=== PATIENT | male | born 1965 | race African-American/Black ===

== ENCOUNTER 2024-08-27 12:04 | Inpatient (IN) | payer OTHER ==
[2024-08-27 12:31] VITALS: BMI 19.8
[2024-08-27] MEDS ORDERED: BISMUTH SUBSALICYLATE 524 MG/30 ML PO PRN (12:43)
[2024-08-27] MEDS ORDERED: MAGNESIUM HYDROX 2400MG/30ML ORAL SUSPENSION 30 ML CUP PO PRN (12:43)
[2024-08-27] MEDS ORDERED: IBUPROFEN 400 MG TABLET (FP) PO PRN (12:43)
[2024-08-27] MEDS ORDERED: BENZOCAINE/MENTHOL (CHLORASEPTIC ) LOZENGE MM PRN (12:43)
[2024-08-27] MEDS ORDERED: guaiFENesin 600 MG TABLET.ER (FP) PO PRN (12:43)
[2024-08-27] MEDS ORDERED: BENZONATATE 200 MG CAPSULE PO PRN (12:43)
[2024-08-27] MEDS ORDERED: ACETAMINOPHEN 325 MG TABLET (FP) PO PRN (12:43)
[2024-08-27] MEDS ORDERED: hydrOXYzine PAMOATE 25 MG CAPSULE (FP) PO PRN (12:43)
[2024-08-27] MEDS ORDERED: DICYCLOMINE HCL 10 MG CAPSULE PO PRN (12:43)
[2024-08-27] MEDS ORDERED: NALOXONE (NARCAN) HCL 4 MG/0.1 ML SPRAY NS PRN (12:43)
[2024-08-27] MEDS ORDERED: ONDANSETRON *ODT* 4 MG TABLET SL PRN (12:43)
[2024-08-27] MEDS ORDERED: LORazepam 1 MG TABLET PO PRN (12:43)
[2024-08-27] MEDS ORDERED: METHOCARBAMOL 500 MG TABLET PO PRN (12:43)
[2024-08-27] MEDS ORDERED: MAG HYDROX/AL HYDROX/SIMETH 30 ML UNIT-DOSE CUP PO PRN (12:43)
[2024-08-27] MEDS ORDERED: POLYETHYLENE GLYCOL (HEALTHYLAX) 3350 17 GM PACKET PO PRN (12:43)
[2024-08-27] MEDS ORDERED: LOPERAMIDE HCL 2 MG CAPSULE PO PRN (12:43)
[2024-08-27] MEDS ORDERED: levETIRAcetam 500 MG TABLET (FP) PO ONE (13:13)
[2024-08-27] MEDS ORDERED: PRENATAL VITAMINS W/ FOLIC ACID TABLET (FP) PO ONE (13:14)
[2024-08-27] MEDS ORDERED: LORazepam 2 MG TABLET ONE (13:14)
[2024-08-27] MEDS: levETIRAcetam 500 MG TABLET (FP) PO ONE (13:18)
[2024-08-27] MEDS: LORazepam 2 MG TABLET PO ONE (13:18)
[2024-08-27] MEDS: PRENATAL VITAMINS W/ FOLIC ACID TABLET (FP) PO SCH (13:18)
[2024-08-27] MEDS: LORazepam 2 MG TABLET PO SCH (17:31)
[2024-08-27] MEDS: THIAMINE 100 MG TABLET PO SCH (22:06)
[2024-08-27] MEDS: MELATONIN 5 MG TABLETS PO SCH (22:06)
[2024-08-28] MEDS: levETIRAcetam 500 MG TABLET (FP) PO SCH (10:09)
[2024-08-28] MEDS: SERTRALINE HCL 25 MG TABLET (FP) PO SCH (10:10)
[2024-08-28 10:43] LABS: HEMATOCRIT 32.5 % (40.1-51.0); HEMOGLOBIN 10.7 g/dL (13.7-17.5); MCHC 32.9 g/dl (32.3-36.5); MEAN CELL VOLUME 87.6 fl (79.0-92.2); MEAN PLT VOLUME 10.8 fl (9.4-12.4); PLATELET COUNT 145 x10^3/uL (163-337); RDW 19.5 % (12.2-16.4)
[2024-08-28 11:05] LABS: POTASSIUM 3.5 mmol/L (3.5-5.1)
[2024-08-28 11:07] LABS: BLOOD UREA NITROGEN 8.7 mg/dL (7-18); CALCIUM 9.4 mg/dL (8.5-10.1)
[2024-08-28 11:08] LABS: ALBUMIN 3.7 g/dl (3.4-5.0)
[2024-08-28 11:12] LABS: TOT PROT 7.2 g/dl (6.4-8.2)
[2024-08-28] MEDS: traZODone HCL 100 MG TABLET (FP) PO SCH (22:38)
[2024-08-28] MEDS: IBUPROFEN 600 MG TABLET (FP) PO PRN (22:38)
[2024-08-29] MEDS: LORazepam 1 MG TABLET PO SCH (05:58)
[2024-08-29 09:20] LABS: ALBUMIN 3.4 g/dl (3.4-5.0)
[2024-08-29 09:24] LABS: BILIRUBIN,DIRECT 0.4 mg/dL (0.0-0.2)
[2024-08-29 09:25] LABS: TOT PROT 6.7 g/dl (6.4-8.2)
[2024-08-29] MEDS ORDERED: LACTULOSE 20 GM/30 ML UDC (FOR ORAL USE ONLY) PO PRN (14:18)
[2024-08-30] MEDS ORDERED: LORazepam 0.5 MG TABLET PO PRN
[2024-08-30] MEDS: LORazepam 0.5 MG TABLET PO SCH (05:45)
[2024-08-30] MEDS: PRIMIDONE 50 MG TABLET PO SCH (10:14)
[2024-08-30] MEDS: FOLIC ACID 1 MG TABLET (FP) PO SCH (10:16)
[2024-08-30] MEDS: PANTOPRAZOLE 20 MG TABLET PO SCH (10:16)
[2024-08-30] MEDS: amLODIPine BESYLATE 5 MG TABLET (FP) PO SCH (10:16)
[2024-08-30] MEDS: GABAPENTIN 300 MG CAPSULE PO SCH (13:27)
[2024-08-30] MEDS: metFORMIN HCL 500 MG TABLET (FP) PO SCH (17:13)
[2024-08-31] MEDS: LORazepam 0.5 MG TABLET PO ONE (05:19)
[2024-08-31 06:32] VITALS: RESP 16
[2024-08-31 09:04] VITALS: BP 106/66; PULSE 85; TEMP 97.3
== END 2024-08-31 11:11 | disposition other institution (70) | DRG 897 ==
LOC: YASAS 12:04 → Y3N 13:31
PROVIDERS: ADMIT Allergy & Immunology; ATTEND Allergy & Immunology
PROC: HZ2ZZZZ Detoxification Services for Substance Abuse Treatment (ICD-10-PCS; principal; 2024-08-27)
DX: F10.230 Alcohol dependence with withdrawal, uncomplicated (principal); E72.20 Disorder of urea cycle metabolism, unspecified; F32.9 Major depressive disorder, single episode, unspecified; G40.909 Epilepsy, unspecified, not intractable, without status epilepticus; I10 Essential (primary) hypertension; K21.9 Gastro-esophageal reflux disease without esophagitis; E11.9 Type 2 diabetes mellitus without complications; Z79.84 Long term (current) use of oral hypoglycemic drugs; R74.01 Elevation of levels of liver transaminase levels
CPT/HCPCS: 36415; 80053; 80076; 80305; 80307; 82140; 82962; 85027; 86780; 93005; 93010

== ENCOUNTER 2024-08-31 11:17 | Inpatient (IN) | payer OTHER ==
[2024-08-31] MEDS ORDERED: LOPERAMIDE HCL 2 MG CAPSULE PO PRN (16:42)
[2024-08-31] MEDS ORDERED: NICOTINE POLACRILEX 2 MG GUM BUC PRN (16:42)
[2024-08-31] MEDS ORDERED: MAGNESIUM HYDROX 2400MG/30ML ORAL SUSPENSION 30 ML CUP PO PRN (16:42)
[2024-08-31] MEDS ORDERED: NICOTINE POLACRILEX 2 MG LOZENGE BC PRN (16:42)
[2024-08-31] MEDS ORDERED: NALOXONE HCL 0.4 MG/ML VIAL IVPUSH PRN (16:42)
[2024-08-31] MEDS ORDERED: BENZOCAINE/MENTHOL (CHLORASEPTIC ) LOZENGE MM PRN (16:42)
[2024-08-31] MEDS ORDERED: BENZONATATE 200 MG CAPSULE PO PRN (16:42)
[2024-08-31] MEDS ORDERED: POLYETHYLENE GLYCOL (HEALTHYLAX) 3350 17 GM PACKET PO PRN (16:42)
[2024-08-31] MEDS ORDERED: MAG HYDROX/AL HYDROX/SIMETH 30 ML UNIT-DOSE CUP PO PRN (16:42)
[2024-08-31] MEDS ORDERED: guaiFENesin 600 MG TABLET.ER (FP) PO PRN (16:42)
[2024-08-31] MEDS ORDERED: IBUPROFEN 400 MG TABLET (FP) PO PRN (16:42)
[2024-08-31] MEDS ORDERED: NALOXONE (NARCAN) HCL 4 MG/0.1 ML SPRAY NS PRN (16:42)
[2024-08-31] MEDS: metFORMIN HCL 500 MG TABLET (FP) PO SCH (17:25)
[2024-08-31] MEDS: METHOCARBAMOL 500 MG TABLET PO PRN (17:26)
[2024-08-31] MEDS: ACETAMINOPHEN 325 MG TABLET (FP) PO PRN (22:09)
[2024-08-31] MEDS: MELATONIN 5 MG TABLETS PO SCH (22:10)
[2024-08-31] MEDS: levETIRAcetam 500 MG TABLET (FP) PO SCH (22:10)
[2024-08-31] MEDS: GABAPENTIN 300 MG CAPSULE PO SCH (22:10)
[2024-08-31] MEDS: THIAMINE 100 MG TABLET PO SCH (22:10)
[2024-08-31] MEDS: PANTOPRAZOLE 20 MG TABLET PO SCH (22:10)
[2024-08-31] MEDS: traZODone HCL 100 MG TABLET (FP) PO ONE (22:11)
[2024-09-01] MEDS: IBUPROFEN 600 MG TABLET (FP) PO PRN (06:14)
[2024-09-01] MEDS: amLODIPine BESYLATE 5 MG TABLET (FP) PO SCH (09:54)
[2024-09-01] MEDS: FOLIC ACID 1 MG TABLET (FP) PO SCH (09:54)
[2024-09-01] MEDS: PRIMIDONE 50 MG TABLET PO SCH (09:54)
[2024-09-01] MEDS: PRENATAL VITAMINS W/ FOLIC ACID TABLET (FP) PO SCH (09:54)
[2024-09-01] MEDS: traZODone HCL 100 MG TABLET (FP) PO SCH (21:12)
[2024-09-01] MEDS: QUEtiapine FUMARATE 100 MG TABLET (FP) PO SCH (21:12)
[2024-09-02] MEDS: LACTULOSE 20 GM/30 ML UDC (FOR ORAL USE ONLY) PO SCH (13:29)
[2024-09-06] MEDS: LIDOCAINE 5% TOPICAL PATCH TP SCH (11:58)
[2024-09-06] MEDS: LIDOCAINE PATCH REMOVAL MC SCH (21:16)
[2024-09-07] MEDS ORDERED: hydrOXYzine PAMOATE 25 MG CAPSULE (FP) PO PRN (13:07)
[2024-09-07] MEDS: QUEtiapine FUMARATE 200 MG TABLET PO SCH (21:22)
[2024-09-13 05:15] VITALS: RESP 16; TEMP 97.5
[2024-09-13 13:13] VITALS: BP 109/65; PULSE 88
== END 2024-09-13 15:42 | disposition home or self-care (01) | DRG 895 ==
LOC: YASAS 11:17 → Y3NR 11:18 → Y3W 09-01 14:54
PROVIDERS: ADMIT Psychiatry & Neurology Pain Medicine; ATTEND Psychiatry & Neurology Pain Medicine
PROC: HZ42ZZZ Group Counseling for Substance Abuse Treatment, Cognitive-Behavioral (ICD-10-PCS; principal; 2024-08-31)
DX: F10.20 Alcohol dependence, uncomplicated (principal); F19.282 Other psychoactive substance dependence with psychoactive substance-induced sleep disorder; F19.280 Other psychoactive substance dependence with psychoactive substance-induced anxiety disorder; E72.20 Disorder of urea cycle metabolism, unspecified; Z59.00 Homelessness unspecified; F19.24 Other psychoactive substance dependence with psychoactive substance-induced mood disorder; F32.9 Major depressive disorder, single episode, unspecified; E11.9 Type 2 diabetes mellitus without complications; Z79.84 Long term (current) use of oral hypoglycemic drugs
CPT/HCPCS: 82140; 82962; 87811